=== PATIENT | male | born 1975 | race Two or more races ===

== ENCOUNTER 2016-08-08 09:42 | Emergency (ER) | payer SELFPAY ==
[~2016-08-08] VITALS: Ht 180.3 cm; Wt 127.0 kg
[2016-08-08 11:25] VITALS: BP 149/106
== END 2016-08-08 11:59 | disposition home or self-care (01) ==
LOC: ER 09:42
DX: S46.911A Strain of unspecified muscle, fascia and tendon at shoulder and upper arm level, right arm, initial encounter (principal); S80.211A Abrasion, right knee, initial encounter; V43.52XA Car driver injured in collision with other type car in traffic accident, initial encounter; Y93.89 Activity, other specified; Y99.8 Other external cause status; Y92.89 Other specified places as the place of occurrence of the external cause
CPT/HCPCS: 73030